=== PATIENT | female | born 1990 | race Native Hawaiian/Other Pacific Islander ===

== ENCOUNTER 2018-11-20 19:33 | Emergency (ER) | payer OTHER ==
[~2018-11-20] VITALS: Ht 162.6 cm; Wt 109.8 kg
[2018-11-20 20:41] VITALS: BP 136/85; TEMP 98
== END 2018-11-20 20:42 | disposition home or self-care (01) ==
LOC: ED 19:33
DX: L02.215 Cutaneous abscess of perineum (principal)
CPT/HCPCS: 96372; 99284; J1885